=== PATIENT | female | born 1990 | race Caucasian/White ===

== ENCOUNTER 2019-03-07 06:19 | Inpatient (IN) | payer OTHER ==
[2019-03-07] MEDS ORDERED: cefOXitin 2 GM Vial ONE (06:39)
[2019-03-07] MEDS ORDERED: Acetaminophen 500 MG Tab PO ONE (06:45)
[2019-03-07] MEDS ORDERED: Celecoxib 200 MG Cap PO ONE (06:45)
[2019-03-07] MEDS ORDERED: Scopolamine 1.5 MG Transdermal Patch TOP ONE (06:45)
[2019-03-07] MEDS ORDERED: Gabapentin 300 MG Cap PO ONE (06:45)
[2019-03-07] MEDS ORDERED: Dextrose 5%-Lactated Ringers 1,000 ML IV SCH (08:00)
[2019-03-07] MEDS ORDERED: Ondansetron 4 MG/2 ML SDV ONE (08:10)
[2019-03-07] MEDS ORDERED: Rocuronium 50 MG/5 ML Vial ONE (08:10)
[2019-03-07] MEDS ORDERED: Succinylcholine 200 MG/10 ML MDV ONE (08:10)
[2019-03-07] MEDS ORDERED: Propofol 200 MG/20 ML SDV ONE (08:10)
[2019-03-07] MEDS ORDERED: Dexamethasone 4 MG/ML SDV ONE (08:10)
[2019-03-07] MEDS ORDERED: Neostigmine Methylsulfate 1 MG/ML 5 ML Syringe ONE (08:10)
[2019-03-07] MEDS ORDERED: Glycopyrrolate 0.2 MG/ML 5 ML MDV ONE (08:10)
[2019-03-07] MEDS ORDERED: fentaNYL 250 MCG/5 ML SDV ONE ×3 (08:14→09:52)
[2019-03-07] MEDS ORDERED: cefOXitin 2 GM in Sodium Chloride 0.9% 50 ML IV ONE (08:30)
[2019-03-07] MEDS ORDERED: Ketamine 50 MG in Sodium Chloride 0.9% 49.5 ML IV SCH (08:45)
[2019-03-07] MEDS ORDERED: Ketamine 500 MG/5 ML MDV IV SCH (08:45)
[2019-03-07] MEDS ORDERED: Lidocaine 2% 100 MG/5 ML Syringe IVPUSH SCH (08:45)
[2019-03-07] MEDS ORDERED: Labetalol 20 MG/4 ML Syringe ONE (10:22)
[2019-03-07] MEDS ORDERED: fentaNYL 100 MCG/2 ML SDV IVPUSH ONE (11:40)
[2019-03-07] MEDS ORDERED: hydrOXYzine HCl 100 MG/2 ML SDV IM ONE (11:40)
[2019-03-07] MEDS ORDERED: diphenhydrAMINE 50 MG/ML SDV IVPUSH PRN (12:43)
[2019-03-07] MEDS ORDERED: hydrOXYzine HCl 100 MG/2 ML SDV IM PRN (12:43)
[2019-03-07] MEDS ORDERED: Metoclopramide 10 MG/2 ML SDV IVPUSH PRN (12:43)
[2019-03-07] MEDS ORDERED: Labetalol 20 MG/4 ML Syringe IVPUSH PRN (12:43)
[2019-03-07] MEDS ORDERED: Ondansetron 4 MG/2 ML SDV IVPUSH PRN (12:43)
[2019-03-07] MEDS ORDERED: HYDROmorphone 1 MG/ML Syringe IV PRN (12:44)
[2019-03-07] MEDS ORDERED: HYDROmorphone 0.5 MG/0.5 ML Syringe IVPUSH PRN (12:44)
[2019-03-07] MEDS: Lidocaine 0.4%/D5W 2 GM/500 ML BAG IV SCH (13:46)
[2019-03-07] MEDS ORDERED: Pantoprazole 40 MG Vial IVPUSH SCH (14:00)
[2019-03-07] MEDS: Gabapentin 250 MG/5 ML Solution ML 470 ML Bottle PO SCH ×2 (14:09→20:17)
[2019-03-07] MEDS: Acetaminophen Soln 650 MG/20.3 ML UD Cup PO SCH ×2 (14:13→19:44)
[2019-03-07] MEDS: cefOXitin 2 GM in Sodium Chloride 0.9% 50 ML IV SCH ×2 (14:56→20:17)
[2019-03-07] MEDS ORDERED: MVI, Adult with Vitamin K 10 ML, Thiamine 200 MG, Chromium/Copper/Mang/Selen/Zn 1 ML in... IV SCH ×4 (16:00)
[2019-03-07] MEDS: Heparin Sodium 5,000 Units/ML Vial SUBCUT SCH (19:42)
[2019-03-07] MEDS: busPIRone 5 MG Tab PO SCH (20:17)
[2019-03-07] MEDS: Dextrose 5%-Lactated Ringers 1,000 ML IV SCH (21:52)
[2019-03-08] MEDS: Acetaminophen Soln 650 MG/20.3 ML UD Cup PO SCH ×4 (01:43→20:31)
[2019-03-08] MEDS ORDERED: Iopamidol 612 MG/ML 50 ML SDV PO PRN (03:03)
[2019-03-08] MEDS: Dextrose 5%-Lactated Ringers 1,000 ML IV SCH (03:32)
[2019-03-08] MEDS: cefOXitin 2 GM in Sodium Chloride 0.9% 50 ML IV SCH ×2 (03:32→08:17)
--- NOTE | 2019-03-08 05:13 | CRLCR ---
Indication: Status post Akilah-en-Y gastric bypass surgery Technique: Two frontal images of the abdomen acquired following ingestion of oral contrast material. Comparison: None Findings/Impression: Contrast material is seen the gastric pouch and Akilah limb. No extraluminal contrast is identified. Mildly distended air-filled small bowel loops likely related to postoperative ileus. A nonspecific 2.3 cm coarse calcification is incidentally noted in the right lower quadrant. Dictated by Ya Garcia MD @ Mar 08 2019 5:05AM Signed by Dr. Ya Garcia @ Mar 08 2019 5:10AM
[2019-03-08] MEDS ORDERED: Dextrose 5%-Lactated Ringers 1,000 ML IV SCH (08:00)
[2019-03-08] MEDS: Celecoxib 200 MG Cap PO SCH (08:38)
[2019-03-08] MEDS: Heparin Sodium 5,000 Units/ML Vial SUBCUT SCH ×2 (08:39→20:31)
[2019-03-08] MEDS: Citalopram 10 MG Tab PO SCH (08:41)
[2019-03-08] MEDS: busPIRone 5 MG Tab PO SCH ×2 (08:41→20:31)
[2019-03-08] MEDS: Lisinopril 5 MG Tab PO SCH (08:42)
[2019-03-08] MEDS: Gabapentin 250 MG/5 ML Solution ML 470 ML Bottle PO SCH ×3 (08:45→20:33)
[2019-03-08] MEDS: SCOPOLAMINE PATCH CHECK TOP SCH (10:12)
[2019-03-08] MEDS: Lidocaine 0.4%/D5W 2 GM/500 ML BAG IV SCH ×2 (13:22→13:23)
[2019-03-08] MEDS ORDERED: Pantoprazole 40 MG Delayed-Release Granules 1 Packet PO SCH (14:00)
[2019-03-08] MEDS ORDERED: MVI, Adult with Vitamin K 10 ML, Thiamine 200 MG, Chromium/Copper/Mang/Selen/Zn 1 ML in... IV SCH ×4 (16:00)
[2019-03-08] MEDS ORDERED: Ondansetron 4 MG Tab.DIS PO PRN (21:47)
[2019-03-09] MEDS: Acetaminophen Soln 650 MG/20.3 ML UD Cup PO SCH ×2 (03:33→08:13)
[2019-03-09] MEDS: busPIRone 5 MG Tab PO SCH (08:12)
[2019-03-09] MEDS: Citalopram 10 MG Tab PO SCH (08:13)
[2019-03-09] MEDS: Heparin Sodium 5,000 Units/ML Vial SUBCUT SCH (08:13)
[2019-03-09] MEDS: Celecoxib 200 MG Cap PO SCH (08:13)
[2019-03-09] MEDS: Lisinopril 5 MG Tab PO SCH (08:14)
[2019-03-09] MEDS: SCOPOLAMINE PATCH CHECK TOP SCH (08:15)
[2019-03-09] MEDS: Gabapentin 250 MG/5 ML Solution ML 470 ML Bottle PO SCH (08:22)
[2019-03-09] MEDS ORDERED: Cyanocobalamin (Vitamin B12) 1,000 MCG/ML SDV IM ONE (09:00)
--- NOTE | 2019-03-09 11:56 | OR ---
DATE OF PROCEDURE: 03/07/2019 SURGEON: Jorje Thompson MD PREOPERATIVE DIAGNOSIS: Morbid obesity. POSTOPERATIVE DIAGNOSES: 1. Morbid obesity. 2. Marked hepatomegaly. 3. Paraesophageal diaphragmatic hernia. OPERATIVE PROCEDURES: Diagnostic laparoscopy with: 1. Laparoscopic Akilah-en-Y gastric bypass with long- limb gastroenterostomy (90059). 2. Gerber-Cut needle liver biopsy (83796). 3. Repair of paraesophageal diaphragmatic hernia (67467). ANESTHESIA: General. ASSISTANTS: 1. Neetu Melara PA-C. 2. Tin Márquez MS-3. INDICATIONS FOR PROCEDURE: This is a 28-year-old female presenting with longstanding morbid obesity and increasing significant comorbidities. After preoperative evaluation and discussion, she wished to proceed with a gastric bypass procedure. Potential risks of procedure including bleeding, infection, leaks from various GI tract closures, problems with bowel obstruction over time as well as possibility of cardiopulmonary, septic, or hemorrhagic complications leading to were discussed, and the patient wishes to proceed. DETAILS OF PROCEDURE: The patient was taken to the operating room and placed in a supine position. After general endotracheal anesthesia was induced, she was converted to a lithotomy position and the abdomen prepped and draped. At 15 cm inferior and 5 cm left of the xiphoid process, a transverse incision was made and the peritoneal cavity entered under direct vision with an Optiview trocar, inflated to 15 mmHg pressure with CO2. Laparoscope was then reinserted. No underlying trocar insertion site injuries were seen. Following this, 5 additional trocars were placed across the upper and mid abdomen. General exploration was undertaken. The patient was noted to have marked hepatomegaly with liver volume being roughly 2 to 3 times normal and the liver grossly fatty infiltrated. Gerber-Cut needle biopsy was obtained from the left lobe of the liver. Minimal bleeding from the biopsy site was seen and was controlled with electrocautery. Bilateral subcostal transversus abdominis plane blocks were then placed. The omentum was then divided in the midline up to the level of the transverse colon. This allowed identification of small bowel at the ligament of Treitz and the small bowel was then traced out 150 cm distal to that point, where it was divided transversely with a SAY stapler. Small bowel was then traced out additional 180 cm, where the [id number] enteroenterostomy was accomplished with internal firing of the Endo-SAY 60 mm stapler. Common opening was then closed transversely with the same stapler and angles were anastomosed. Mesenteric defect approximated with some 0 Ethibond stitch along with 4 mL of fibrin sealant. The divided end of the Akilah limb was then from the mesentery for a few centimeters which allowed an antecolic position of the Akilah limb up to the level of the gastroesophageal junction without tension. The liver was then retracted anteriorly. The patient was noted to have a moderate-sized paraesophageal diaphragmatic hernia. This was reduced. The peritoneum overlying the hernia was incised and reflected downward. An anterior repair of the diaphragmatic hernia was accomplished with some 0 Ethibond sutures reinforced with PTFE pledgets. The gastrointestinal balloon catheter was then inflated to 15 mL and pulled up snugly against the EG junction. Gastric wall over the apex balloon was then marked with electrocautery and balloon catheter deflated and withdrawn. The lesser omental tissue adjacent to the gastric cardia was then incised allowing dissection behind the stomach at that level. Pouch formation was initiated with transverse firing of the SAY stapler at the level of the cauterized nadiya at the gastric cardia. The pouch was then completed with additional firings of the SAY stapler up to and through the angle of His. Upon completion of the pouch, both staple lines were noted to be intact. The anvil of a 25-mm EEA stapler was attached to a Vanleer sump-type tube. The latter was brought down through the mouth and taken out through a small opening in the gastric pouch allowing the anvil likewise to be pulled down to within the gastric pouch. The divided end of the Akilah limb was then opened and main body of EEA stapler was passed several centimeters into the lumen of small bowel, brought up the anvil, united with it, thus creating the gastrojejunostomy. Upon removal of the stapler, double donuts of mucosa were noted within it. The small bowel was closed off with a vascular staple line. The gastrojejunostomy was then reinforced with some 3-0 Vicryl seromuscular stitch along with fibrin sealant. Leak test was accomplished with injection of 120 mL of air into the gastric pouch and no leaks were identified. A single Emerson-Fong drain was taken out through the left lateral trocar site, positioned adjacent to the gastrojejunostomy, and from there up into the splenic fossa. The trocars were removed, the peritoneal cavity deflated, and the incisions were closed with some 4-0 Vicryl skin stitch, which was also used to affix the drain. The patient was taken to the recovery room in satisfactory condition. Physician parking assistant, Neetu Melara, played an essential role in assisting in this case, helping to position the patient, retract structures as needed, as well as suturing and cutting sutures when indicated. Her presence improved patient safety and decreased the operative time. Jorje Thompson MD /[id number]
--- NOTE | 2019-03-09 14:03 | PN ---
DATE OF SERVICE: 03/08/2019 Patient is postoperative day #1 from laparoscopic Akilah-en-Y gastric bypass along with repair of hiatal hernia. Clinically, she has done well overnight. Urine output has been satisfactory. I will back down the IV rate somewhat today and go up to step-2 diet. Continue to work with increasing activity and pulmonary toilet. Jorje Thompson MD /[id number]
--- NOTE | 2019-03-11 08:41 | DISCH ---
FINAL DIAGNOSES: 1. Morbid obesity. 2. Marked hepatomegaly. 3. Paraesophageal diaphragmatic hernia. 4. History of depression. 5. History of kidney stones. 6. History of hypertension. 7. History of obstructive sleep apnea. OPERATIVE PROCEDURES: This was done on 03/07/2019, diagnostic laparoscopy with: 1. Laparoscopic Akilah-en-Y gastric bypass with long-limb gastroenterostomy. 2. Gerber-Cut needle liver biopsy. 3. Repair of paraesophageal diaphragmatic hernia. SUMMARY: This is a 28-year-old presenting with longstanding morbid obesity and increasingly significant comorbidities. After preoperative evaluation and discussion, she wished to proceed with a gastric bypass procedure. This was done on the date of admission, along with the current procedures listed above. Postoperatively, she has had no significant problems. She will be discharged home continuing the BuSpar, lisinopril, and citalopram as preoperatively, splitting these for 2 weeks postoperatively. Otherwise, Celebrex 200 mg a day and Tylenol 1 g q.i.d. p.r.n. She does not need any narcotics in the postoperative period. She will be holding the vitamins and other supplements until her first appointment, which will be with Neetu Melara, [facility] in [place] on 03/18/2019. She will be instructed to stay on a step-2 diet until the first appointment.
== END 2019-03-09 10:15 | disposition home or self-care (01) | DRG 621 ==
LOC: JP.SDSSCHI 06:19 → JP.SDS 06:20 → EDSTATUS 08:40 → JP.MS 11:25
PROVIDERS: ADMIT Surgery; ATTEND Surgery
PROC: 0D164ZA Bypass Stomach to Jejunum, Percutaneous Endoscopic Approach (ICD-10-PCS; principal; 2019-03-07)
PROC: 0FB24ZX Excision of Left Lobe Liver, Percutaneous Endoscopic Approach, Diagnostic (ICD-10-PCS; 2019-03-07)
PROC: 0BQT4ZZ Repair Diaphragm, Percutaneous Endoscopic Approach (ICD-10-PCS; 2019-03-07)
DX: E66.01 Morbid (severe) obesity due to excess calories (principal); R16.0 Hepatomegaly, not elsewhere classified; K44.9 Diaphragmatic hernia without obstruction or gangrene; F32.9 Major depressive disorder, single episode, unspecified; I10 Essential (primary) hypertension; G47.33 Obstructive sleep apnea (adult) (pediatric); Z87.442 Personal history of urinary calculi; Z68.43 Body mass index [BMI] 50.0-59.9, adult
CPT/HCPCS: 36415; 74240; 82962; 86850; 86900; 86901; A9270-GY; C9113; J0171; J0330; J0694; J1100; J1644; J2001; J2405; J2704; J2710; J2795; J3010; J3410; J3411; J3420; J3490; J7042; J7050; Q9967